=== PATIENT | female | born 1960 | race Two or more races ===

== ENCOUNTER 2017-08-26 10:02 | Day surgery (SDC) | payer OTHER ==
[2017-08-25 09:24] VITALS: BMI 27.4
[~2017-08-26 10:02] MED LIST: LACTATED RINGERS 1,000 ML IV SCH; LIDOCAINE 1% 20 ML VIAL (10MG/ML) FOR IV START INTRADERMA PRN
[2017-08-26 11:23] VITALS: TEMP 97
[2017-08-26] MEDS ORDERED: PROPOFOL 10 MG/ML 20 ML VIAL IV ONE (11:35)
--- NOTE | 2017-08-26 11:50 | P.PCN ---
Date of Procedure: 08/26/17 Procedure(s) Performed: BRIEF HISTORY: Patient is a 57-year-old pleasant [white female, scheduled for an elective colonoscopy as a part of screening for colorectal neoplasia. PROCEDURE PERFORMED: Colonoscopy with snare polypectomy. PREOPERATIVE DIAGNOSIS: screening for colon cancer. IV sedation per Anesthesia. PROCEDURE: After informed consent was obtained, the patient, was brought into the endoscopy unit. IV sedation was administered by Anesthesia under continuous monitoring. Digital rectal examination was normal. Initially the Olympus CF- 160 flexible video colonoscope was then inserted in the rectum, gradually advanced into the cecum without any difficulty. Careful examination was performed as the scope was gradually being withdrawn. Ileocecal valve and the appendiceal orifice were visualized and appeared normal. Prep was excellent. Mucosa of the cecum, ascending colon, transverse colon, descending colon, sigmoid colon, and rectum appeared normal.in the rectum there were 2 polyps measuring 5 mm and 1 cm in size both of which were removed by snare polypectomy. Retroflexion was performed in the rectum and no lesions were seen. The patient tolerated the procedure well. IMPRESSION: 5 mm and 1 cm mid rectal polyps status post polypectomy Rest of the colon appeared normal RECOMMENDATIONS: Findings of this examination were discussed with the patient as well as a family. She was advised to follow with the biopsy result. The biopsy shows a tubular adenoma she can have a repeat colonoscopy in 3 years.
[2017-08-26 12:16] VITALS: BP 119/78; PULSE 69; RESP 18
== END 2017-08-26 12:37 | disposition home or self-care (01) ==
LOC: ORWHC2ENDO 10:02
PROVIDERS: ATTEND Internal Medicine Gastroenterology
DX: Z12.11 Encounter for screening for malignant neoplasm of colon (principal); K62.1 Rectal polyp; Z87.891 Personal history of nicotine dependence
CPT/HCPCS: 88305; 45385; J2704

== ENCOUNTER 2023-03-18 07:29 | Day surgery (SDC) | payer MEDICARE, OTHER ==
[2023-03-16 12:00] VITALS: BMI 26.5
[~2023-03-18 07:29] MED LIST changes: -LACTATED RINGERS 1,000 ML IV SCH; +LIDOCAINE 1% (10MG/ML) FOR IV START INTRADERMA PRN; -LIDOCAINE 1% 20 ML VIAL (10MG/ML) FOR IV START INTRADERMA PRN
[2023-03-18 08:04] VITALS: TEMP 97.9
[2023-03-18] MEDS: LACTATED RINGERS 1,000 ML IV SCH (08:12)
[2023-03-18] MEDS ORDERED: PROPOFOL 10 MG/ML 20 ML VIAL IV ONE (08:16)
[2023-03-18] MEDS ORDERED: LIDOCAINE 2% INJ 20 MG/ML (2 ML VIAL) ONE (08:16)
--- NOTE | 2023-03-18 08:35 | P.PCN ---
Date of Procedure: 03/18/23 Procedure(s) Performed: Brief history: Patient is a pleasant 63-year-old white female scheduled for an elective upper endoscopy as well as colonoscopy as a part of evaluation of intermittent dysphagia to solids and history of colon polyps. Last colonoscopy was 6 years ago. Procedure performed: Esophagogastroduodenoscopy with biopsy Colonoscopy with biopsy Preoperative diagnosis: Intermittent dysphagia to solids History of colon polyps Anesthesia: [facility] [place] Procedure: After informed consent was obtained from the patient was brought into the endoscopy unit and IV sedation was administered by anesthesia under continuous monitoring. Initially upper endoscopy was done. The Olympus GF 160 video endoscope was inserted inserted into the mouth and esophagus intubated without any difficulty and was gradually advanced into the stomach and duodenum and carefully examined. The bulb had mild duodenitis and second part of the duodenum appeared normal. The scope was then withdrawn into the stomach adequately insufflated with air and upon careful examination the antrum had mild gastritis and biopsies were done from this area. Mucosa of the cardia and fundus appeared normal. The scope was then withdrawn into the esophagus. Small hiatal hernia noted. The GE junction was located at 35 cm to the incisors. It appeared regularsuperficial erosions consistent with LA grade B reflux esophagitis. The mucosa of the distal esophagus appeared slightly thickened and edematous with longitudinal ridges suspicious for a eosinophilic esophagitis and multiple biopsies were done from this area. rest of the esophagus appeared normal. Patient tolerated the procedure well. At this time the patient continued to remain sedation. Initial digital rectal examination was normal. Olympus CF 160 video colonoscope was then inserted into the rectum and gradually advanced to the cecum without any difficulty. Careful examination was performed as the scope was gradually being withdrawn. The prep was excellent. The cecum, ascending colon, appeared normal. The transverse colon there was a 4 mm polyp, I cold biopsy. Rest transverse colon, descending colon, sigmoid colon and rectum appeared normal. in the proximal rectum there was a 3 mm polyp that was removed by cold biopsy. Retroflexion was performed in the rectum and no lesions were noted. Patient tolerated the procedure well. Impression: 1. Upper endoscopy revealed mild antral gastritis and duodenitis, LA grade B reflux esophagitis and thickened distal esophageal folds suspicious for eosinophilic esophagitis 2. Colonoscopy revealed 4 mm transverse colon polyp status post biopsy and 3 millimeters rectal polyp status post cold biopsy Recommendations: Findings of this examination were discussed with the patient as well as her family. She was advised to follow with the biopsy results. Trial of Prilosec 20 mg twice daily and she was briefly educated about antireflux measures. Recommend repeat colonoscopy in 5 years from now
[2023-03-18 08:46] VITALS: RESP 16
[2023-03-18 09:26] VITALS: BP 124/77; PULSE 84
== END 2023-03-18 09:30 | disposition home or self-care (01) ==
LOC: ORWHC2ENDO 07:29
PROVIDERS: ATTEND Internal Medicine Gastroenterology
DX: Z12.11 Encounter for screening for malignant neoplasm of colon (principal); K31.9 Disease of stomach and duodenum, unspecified; D12.3 Benign neoplasm of transverse colon; K29.50 Unspecified chronic gastritis without bleeding; D72.10 Eosinophilia, unspecified; K21.00 Gastro-esophageal reflux disease with esophagitis, without bleeding; K29.80 Duodenitis without bleeding; K62.1 Rectal polyp; E78.5 Hyperlipidemia, unspecified; E66.9 Obesity, unspecified; Z86.010 Personal history of colon polyps; Z87.891 Personal history of nicotine dependence; Z79.899 Other long term (current) drug therapy
CPT/HCPCS: 45380; 43239; J2704; J2001; 88305